=== PATIENT | male | born 1955 | race African-American/Black ===

== ENCOUNTER 2017-02-04 11:40 | Emergency (ER) | payer MEDICAID ==
[~2017-02-04] VITALS: Ht 182.9 cm; Wt 80.0 kg
[2017-02-04 12:08] VITALS: BP 130/78
== END 2017-02-04 17:43 | disposition left against medical advice (07) ==
LOC: ER 13:13
DX: Z53.21 Procedure and treatment not carried out due to patient leaving prior to being seen by health care provider (principal); I10 Essential (primary) hypertension; F17.210 Nicotine dependence, cigarettes, uncomplicated

== ENCOUNTER 2019-05-24 11:08 | Emergency (ER) | payer MEDICARE, MEDICAID ==
[~2019-05-24] VITALS: Ht 180.3 cm; Wt 75.0 kg
[2019-05-24] MEDS ORDERED: HYDROCODONE/ACETAMINOPHEN 5/325MG TABLET PO ONE (11:45)
[2019-05-24 11:51] VITALS: BP 107/66
== END 2019-05-24 13:18 | disposition home or self-care (01) ==
LOC: ER 11:08
DX: S22.42XA Multiple fractures of ribs, left side, initial encounter for closed fracture (principal); Y93.55 Activity, bike riding; Y92.89 Other specified places as the place of occurrence of the external cause; I10 Essential (primary) hypertension
CPT/HCPCS: 71101; 99283

== ENCOUNTER 2021-03-05 13:11 | Emergency (ER) | payer MEDICARE, MEDICAID ==
[~2021-03-05] VITALS: Ht 172.7 cm; Wt 75.0 kg
[2021-03-05 13:23] VITALS: BP 131/89
[2021-03-05] MEDS ORDERED: KETOROLAC 30MG/ML VIAL IM ONE (17:30)
== END 2021-03-05 18:36 | disposition left against medical advice (07) ==
LOC: ER 13:11
DX: Z53.21 Procedure and treatment not carried out due to patient leaving prior to being seen by health care provider (principal); M54.59 Other low back pain; N40.1 Benign prostatic hyperplasia with lower urinary tract symptoms; R39.16 Straining to void

== ENCOUNTER 2021-03-11 09:09 | Emergency (ER) | payer MEDICARE, MEDICAID ==
[~2021-03-11] VITALS: Ht 180.3 cm; Wt 75.0 kg
[2021-03-11 10:20] LABS: CLARITY URINE TURBID (CLEAR); KETONES URINE TRACE (NEGATIVE); LEUKOCYTE ESTERASE URINE 2+ (NEGATIVE); NITRITE URINE NEGATIVE (NEGATIVE); OCCULT BLOOD URINE 3+ (NEGATIVE); PH URINE 7.5 (4.5-8.0); PROTEIN URINE 3+ (NEGATIVE); SPECIFIC GRAVITY URINE 1.014 (1.005-1.030)
[2021-03-11 10:21] LABS: COLOR URINE BLOODY (YELLOW)
[2021-03-11 11:02] LABS: BASOPHILS % 0.5 % (0.0-2.0); EOSINOPHILS % 0.4 % (0.0-5.0); HEMOGLOBIN. 14.5 g/dL (14.0-18.0); LYMPHOCYTES % 17.3 % (20.0-50.0); MEAN CORPUSCULAR VOLUME 94.6 fL (80.0-94.0); MEAN PLATELET VOLUME 10.9 fl (7.4-10.4); MONOCYTES % 12.2 % (2.0-8.0); NEUTROPHILS % 69.6 % (40.0-76.0); PLATELET 146 x1000/uL (130-400); RED BLOOD CELL COUNT 4.55 mill/uL (4.7-6.1); RED CELL DISTRIBUTION WIDTH 12.4 % (11.6-14.6)
[2021-03-11 11:10] LABS: CHLORIDE 99 mEq/L (98-107)
[2021-03-11] MEDS ORDERED: KETOROLAC 15MG/ML VIAL IV SCH (12:00)
[2021-03-11] MEDS ORDERED: CEFTRIAXONE 1 G PREMIX 50 ML IV SCH (12:00)
[2021-03-11] MEDS ORDERED: SODIUM CHLORIDE 0.9% 1,000 ML IV SCH (12:00)
[2021-03-11] MEDS ORDERED: CIPR500T5 MT (15:08)
[2021-03-11 15:35] VITALS: BP 128/68
== END 2021-03-11 15:35 | disposition home or self-care (01) ==
LOC: ER 09:09
DX: N39.0 Urinary tract infection, site not specified (principal); F11.10 Opioid abuse, uncomplicated
CPT/HCPCS: 36415; 74176; 80053; 81003; 83690; 85025; 87086; 96365; 96375; 99285; J0696; J1885

== ENCOUNTER 2021-05-02 11:11 | Emergency (ER) | payer MEDICARE, MEDICAID ==
[~2021-05-02] VITALS: Ht 180.3 cm; Wt 70.0 kg
[~2021-05-02 11:11] MED LIST: CIPR500T5 MT
[2021-05-02 11:20] VITALS: BP 101/58
== END 2021-05-02 13:26 | disposition home or self-care (01) ==
LOC: ER 11:11
DX: T83.038A Leakage of other urinary catheter, initial encounter (principal); N40.0 Benign prostatic hyperplasia without lower urinary tract symptoms; F11.10 Opioid abuse, uncomplicated; F17.210 Nicotine dependence, cigarettes, uncomplicated; Y84.6 Urinary catheterization as the cause of abnormal reaction of the patient, or of later complication, without mention of misadventure at the time of the procedure; Y92.018 Other place in single-family (private) house as the place of occurrence of the external cause
CPT/HCPCS: 99281

== ENCOUNTER 2021-06-10 13:18 | Emergency (ER) | payer MEDICARE, MEDICAID ==
[~2021-06-10] VITALS: Ht 177.8 cm; Wt 73.0 kg
[2021-06-10] MEDS ORDERED: MORPHINE SULFATE 4 MG/ML CPJ (NOT FOR IM USE) IV ONE (14:15)
[2021-06-10 14:48] LABS: BASOPHILS % 0.6 % (0.0-2.0); EOSINOPHILS % 0.4 % (0.0-5.0); HEMATOCRIT. 49.6 % (42.0-52.0); HEMOGLOBIN. 16.9 g/dL (14.0-18.0); LYMPHOCYTES % 21.7 % (20.0-50.0); MEAN CORPUSCULAR HEMOGLOBIN 30.5 pg (28.0-32.0); MEAN CORPUSCULAR VOLUME 89.5 fL (80.0-94.0); MEAN PLATELET VOLUME 11.8 fl (7.4-10.4); MONOCYTES % 11.5 % (2.0-8.0); NEUTROPHILS % 65.8 % (40.0-76.0); PLATELET 55 x1000/uL (130-400); RED BLOOD CELL COUNT 5.55 mill/uL (4.7-6.1); RED CELL DISTRIBUTION WIDTH 13.5 % (11.6-14.6)
[2021-06-10 14:56] LABS: CHLORIDE 106 mEq/L (98-107)
[2021-06-10 15:02] LABS: CLARITY URINE TURBID (CLEAR); COLOR URINE RED (YELLOW); KETONES URINE NEGATIVE (NEGATIVE); LEUKOCYTE ESTERASE URINE 3+ (NEGATIVE); NITRITE URINE POSITIVE (NEGATIVE); OCCULT BLOOD URINE 3+ (NEGATIVE); PH URINE 5.5 (4.5-8.0); PROTEIN URINE 2+ (NEGATIVE); SPECIFIC GRAVITY URINE 1.013 (1.005-1.030)
[2021-06-10 15:52] VITALS: BP 161/95
[2021-06-10] MEDS ORDERED: CEFTRIAXONE 1 G PREMIX 50 ML IV ONE (17:15)
== END 2021-06-10 17:24 | disposition left against medical advice (07) ==
LOC: ER 13:42
DX: N13.30 Unspecified hydronephrosis (principal); N20.0 Calculus of kidney; K80.20 Calculus of gallbladder without cholecystitis without obstruction
CPT/HCPCS: 36415; 74176; 80053; 81003; 83690; 85025; 87077; 87086; 87186; 96374; 99284; J2270

== ENCOUNTER 2021-08-06 09:19 | Emergency (ER) | payer MEDICARE, MEDICAID ==
[~2021-08-06] VITALS: Ht 182.9 cm; Wt 72.0 kg
[2021-08-06 09:28] VITALS: BP 98/64
[2021-08-06 11:16] LABS: CLARITY URINE TURBID (CLEAR); COLOR URINE ORANGE (YELLOW); KETONES URINE NEGATIVE (NEGATIVE); LEUKOCYTE ESTERASE URINE 3+ (NEGATIVE); NITRITE URINE NEGATIVE (NEGATIVE); OCCULT BLOOD URINE 3+ (NEGATIVE); PROTEIN URINE 2+ (NEGATIVE); SPECIFIC GRAVITY URINE 1.013 (1.005-1.030)
[2021-08-06] MEDS ORDERED: NITR-87 MT (12:14)
== END 2021-08-06 13:18 | disposition home or self-care (01) ==
LOC: ER 09:19
DX: N39.0 Urinary tract infection, site not specified (principal); Z46.6 Encounter for fitting and adjustment of urinary device
CPT/HCPCS: 74176; 81003; 87077; 87186; 99284; A4315

== ENCOUNTER 2021-09-15 11:15 | Emergency (ER) | payer MEDICARE, MEDICAID ==
[~2021-09-15] VITALS: Ht 180.3 cm; Wt 76.0 kg
[~2021-09-15 11:15] MED LIST changes: +NITR-87 MT
[2021-09-15 13:01] LABS: CLARITY URINE CLOUDY (CLEAR); COLOR URINE BLOODY (YELLOW); KETONES URINE TRACE (NEGATIVE); LEUKOCYTE ESTERASE URINE 2+ (NEGATIVE); NITRITE URINE NEGATIVE (NEGATIVE); OCCULT BLOOD URINE 3+ (NEGATIVE); PH URINE 6.5 (4.5-8.0); PROTEIN URINE 2+ (NEGATIVE); UROBILINOGEN URINE 0.2 E.U./dL (0.2-1.0)
[2021-09-15] MEDS ORDERED: CIPR500T5 MT (13:42)
[2021-09-15] MEDS ORDERED: LEVOFLOXACIN 250MG TABLET PO NR (13:57)
[2021-09-15 14:21] VITALS: BP 138/83
== END 2021-09-15 14:27 | disposition home or self-care (01) ==
LOC: ER 11:15
DX: T83.098A Other mechanical complication of other urinary catheter, initial encounter (principal); N39.0 Urinary tract infection, site not specified; N40.1 Benign prostatic hyperplasia with lower urinary tract symptoms; R33.8 Other retention of urine; Y84.6 Urinary catheterization as the cause of abnormal reaction of the patient, or of later complication, without mention of misadventure at the time of the procedure; Y92.018 Other place in single-family (private) house as the place of occurrence of the external cause; F17.210 Nicotine dependence, cigarettes, uncomplicated
CPT/HCPCS: 51702; 81003; 99284

== ENCOUNTER 2021-10-30 09:18 | Inpatient (IN) | payer MEDICARE, OTHER ==
[~2021-10-30] VITALS: Ht 167.6 cm; Wt 77.6 kg
[2021-10-30] MEDS ORDERED: ACETAMINOPHEN 325MG TABLET PO STA (10:03)
[2021-10-30 10:37] LABS: BASOPHILS % 0.4 % (0.0-2.0); EOSINOPHILS % 1.1 % (0.0-5.0); HEMATOCRIT. 40.2 % (42.0-52.0); HEMOGLOBIN. 13.5 g/dL (14.0-18.0); LYMPHOCYTES % 15.7 % (20.0-50.0); MEAN CORPUSCULAR VOLUME 92.4 fL (80.0-94.0); MEAN PLATELET VOLUME 10.7 fl (7.4-10.4); MONOCYTES % 8.4 % (2.0-8.0); NEUTROPHILS % 74.4 % (40.0-76.0); PLATELET 68 x1000/uL (130-400); RED BLOOD CELL COUNT 4.35 mill/uL (4.7-6.1)
[2021-10-30 10:51] LABS: CHLORIDE 103 mEq/L (98-107)
[2021-10-30 11:04] LABS: INR 1.1; PROTHROMBIN TIME 11.4 sec (9.6-11.0)
[2021-10-30] MEDS ORDERED: HYDROCODONE/ACETAMINOPHEN 5/325MG TABLET PO ONE (12:00)
[2021-10-30] MEDS ORDERED: CEFTRIAXONE 1 G PREMIX 50 ML IV SCH (19:15)
[2021-10-30 20:00] VITALS: BP 154/79
[2021-10-30] MEDS ORDERED: HYDROCODONE/ACETAMINOPHEN 10/325MG TABLET PO PRN (20:30)
[2021-10-30] MEDS ORDERED: NALOXONE HCL 0.4MG/ML VIAL IV PRN (20:45)
[2021-10-30] MEDS ORDERED: POTASSIUM CHLORIDE 20MEQ TABLET SR PO NR (21:00)
[2021-10-30] MEDS: CEFTRIAXONE 1,000 MG in DEXTROSE 5% WATER 50 ML IV SCH (21:58)
[2021-10-30] MEDS: FAMOTIDINE 20MG TABLET PO SCH (21:58)
[2021-10-30 22:00] LABS: BASOPHILS % 0.6 % (0.0-2.0); EOSINOPHILS % 1.6 % (0.0-5.0); HEMATOCRIT. 42.5 % (42.0-52.0); HEMOGLOBIN. 14.1 g/dL (14.0-18.0); LYMPHOCYTES % 24.2 % (20.0-50.0); MEAN CORPUSCULAR HEMOGLOBIN 30.9 pg (28.0-32.0); MEAN CORPUSCULAR VOLUME 93.1 fL (80.0-94.0); MEAN PLATELET VOLUME 10.8 fl (7.4-10.4); MONOCYTES % 10.8 % (2.0-8.0); NEUTROPHILS % 62.8 % (40.0-76.0); PLATELET 63 x1000/uL (130-400); RED BLOOD CELL COUNT 4.56 mill/uL (4.7-6.1); RED CELL DISTRIBUTION WIDTH 12.2 % (11.6-14.6)
[2021-10-30 22:24] LABS: CHLORIDE 102 mEq/L (98-107)
[2021-10-31] VITALS (7 sets, daily range): BP systolic 164–180; BP diastolic 100–112
[2021-10-31 03:06] LABS: CLARITY URINE TURBID (CLEAR); COLOR URINE BROWN (YELLOW)
[2021-10-31 03:07] LABS: PROTEIN URINE 2+ (NEGATIVE)
[2021-10-31 03:09] LABS: KETONES URINE 1+ (NEGATIVE); NITRITE URINE NEGATIVE (NEGATIVE); OCCULT BLOOD URINE 4+ (NEGATIVE); UROBILINOGEN URINE 1 E.U./dL (0.2-1.0)
[2021-10-31 03:10] LABS: LEUKOCYTE ESTERASE URINE 2+ (NEGATIVE)
[2021-10-31] MEDS: CLONIDINE 0.1MG TABLET PO PRN ×3 (05:37→15:48)
[2021-10-31] MEDS: AMLODIPINE 10MG TABLET PO SCH (08:29)
[2021-10-31] MEDS: FAMOTIDINE 20MG TABLET PO SCH ×2 (08:32→22:05)
[2021-10-31] MEDS ORDERED: LOSARTAN POTASSIUM 50 MG TABLET PO SCH (09:45)
[2021-10-31] MEDS: HYDRALAZINE HCL 100MG TABLET PO SCH ×2 (17:27→22:04)
[2021-10-31] MEDS: CEFTRIAXONE 1,000 MG in DEXTROSE 5% WATER 50 ML IV SCH (22:04)
[2021-10-31] MEDS: LOSARTAN POTASSIUM 50 MG TABLET PO SCH (22:05)
[2021-11-01] VITALS: BP 155/96
[2021-11-01 04:00] VITALS: BP 158/97
[2021-11-01] MEDS: HYDRALAZINE HCL 100MG TABLET PO SCH (06:21)
[2021-11-01 08:27] VITALS: BP 168/98
[2021-11-01] MEDS: FAMOTIDINE 20MG TABLET PO SCH (08:31)
[2021-11-01] MEDS: LOSARTAN POTASSIUM 50 MG TABLET PO SCH (08:31)
[2021-11-01] MEDS: AMLODIPINE 10MG TABLET PO SCH (08:31)
[2021-11-01 10:15] VITALS: BP 168/98
[2021-11-01] MEDS ORDERED: CEPH500C2 MT (10:28)
[2021-11-01] MEDS ORDERED: METO-539 MT (10:28)
[2021-11-01] MEDS ORDERED: LOSA50TA3 PO (10:28)
[2021-11-01] MEDS ORDERED: HYDR100T26 PO (10:28)
[2021-11-01] MEDS ORDERED: METOPROLOL TARTRATE 50MG TABLET PO SCH ×2 (10:30→21:00)
== END 2021-11-01 11:20 | disposition home or self-care (01) | DRG 465 ==
LOC: ER 09:18 → EDBEDREQ 13:52 → EDBEDREQTM 13:53 → 6EST 18:29 → 7EST 10-31 11:33
PROVIDERS: ADMIT Internal Medicine; ATTEND Internal Medicine
DX: N20.0 Calculus of kidney (principal); U07.1 COVID-19; E44.1 Mild protein-calorie malnutrition; N21.0 Calculus in bladder; N13.8 Other obstructive and reflux uropathy; N40.1 Benign prostatic hyperplasia with lower urinary tract symptoms; N39.0 Urinary tract infection, site not specified; E87.1 Hypo-osmolality and hyponatremia; E87.6 Hypokalemia; F17.210 Nicotine dependence, cigarettes, uncomplicated; I10 Essential (primary) hypertension; M54.50 Low back pain, unspecified; R26.2 Difficulty in walking, not elsewhere classified; Z79.899 Other long term (current) drug therapy; Z68.27 Body mass index [BMI] 27.0-27.9, adult
CPT/HCPCS: 36415; 74176; 80048; 80053; 81003; 85025; 87077; 87186; 87426; 93005; 99285; J0696; J7060; J7120

== ENCOUNTER → 2022-03-21 | Day surgery (SDC) | payer MEDICARE, MEDICAID ==
[~2022-03-21] VITALS: Ht 177.8 cm; Wt 66.7 kg
[~2022-03-21] MED LIST changes: +BICT1TAB PO; +CEPH500C2 MT; -CIPR500T5 MT; +FENTANYL CITRATE/PF 50MCG/ML 2ML VIAL ONE; +HYDR100T26 PO; +LACTATED RINGERS 1,000 ML IV SCH; +LIDOCAINE HCL 1% 10 MG/ML 10ML VIAL ONE; +LOSA50TA3 PO; +METO-539 MT; -NITR-87 MT; +PROPOFOL 200MG/20ML VIAL IV ONE; +TAMS-11 PO
[2022-03-21 06:45] LABS: BASOPHILS % 0.5 % (0.0-2.0); EOSINOPHILS % 1.2 % (0.0-5.0); HEMATOCRIT. 46.7 % (42.0-52.0); HEMOGLOBIN. 15.5 g/dL (14.0-18.0); LYMPHOCYTES % 17.5 % (20.0-50.0); MEAN CORPUSCULAR HEMOGLOBIN 30.6 pg (28.0-32.0); MEAN CORPUSCULAR VOLUME 91.9 fL (80.0-94.0); MEAN PLATELET VOLUME 12.1 fl (7.4-10.4); MONOCYTES % 11.5 % (2.0-8.0); NEUTROPHILS % 69.3 % (40.0-76.0); RED BLOOD CELL COUNT 5.08 mill/uL (4.7-6.1); RED CELL DISTRIBUTION WIDTH 12.4 % (11.6-14.6)
[2022-03-21 08:11] LABS: INR 1.1; PARTIAL THROMBOPLASTIN TIME 31.1 sec (23.4-31.0); PROTHROMBIN TIME 11.3 sec (9.6-11.0)
[2022-03-21 08:35] LABS: CHLORIDE 106 mEq/L (98-107)
[2022-03-21 11:40] LABS: PLATELET 43 x1000/uL (130-400)
== END | disposition home or self-care (01) ==
LOC: OR 06:35
PROVIDERS: ATTEND Urology
DX: R33.9 Retention of urine, unspecified (principal); Z53.8 Procedure and treatment not carried out for other reasons; J44.9 Chronic obstructive pulmonary disease, unspecified; F17.210 Nicotine dependence, cigarettes, uncomplicated; Z79.899 Other long term (current) drug therapy; Z98.890 Other specified postprocedural states; Z82.49 Family history of ischemic heart disease and other diseases of the circulatory system; Z79.01 Long term (current) use of anticoagulants
CPT/HCPCS: 36415; 71045; 80048; 85025; 85610; 85730; 87426; 93005; J2704; J3010; J3490

== ENCOUNTER 2022-04-01 09:43 | Emergency (ER) | payer MEDICARE, MEDICAID ==
[~2022-04-01] VITALS: Ht 165.1 cm; Wt 70.0 kg
[~2022-04-01 09:43] MED LIST changes: -FENTANYL CITRATE/PF 50MCG/ML 2ML VIAL ONE; -LACTATED RINGERS 1,000 ML IV SCH; -LIDOCAINE HCL 1% 10 MG/ML 10ML VIAL ONE; -PROPOFOL 200MG/20ML VIAL IV ONE
[2022-04-01 09:49] VITALS: BP 130/79
== END 2022-04-01 18:58 | disposition left against medical advice (07) ==
LOC: ER 09:43
DX: Z53.21 Procedure and treatment not carried out due to patient leaving prior to being seen by health care provider (principal)

== ENCOUNTER 2022-05-30 23:28 | Emergency (ER) | payer MEDICARE, MEDICAID ==
[~2022-05-30] VITALS: Ht 180.3 cm; Wt 66.0 kg
[2022-05-30 23:46] VITALS: BP 129/67
[2022-05-31 02:19] LABS: CLARITY URINE TURBID (CLEAR); COLOR URINE YELLOW (YELLOW); KETONES URINE TRACE (NEGATIVE); LEUKOCYTE ESTERASE URINE 3+ (NEGATIVE); NITRITE URINE POSITIVE (NEGATIVE); OCCULT BLOOD URINE 2+ (NEGATIVE); PH URINE 5.5 (4.5-8.0); PROTEIN URINE TRACE (NEGATIVE); SPECIFIC GRAVITY URINE 1.014 (1.005-1.030)
== END 2022-05-31 00:45 | disposition left against medical advice (07) ==
LOC: ER 23:28
DX: Z53.21 Procedure and treatment not carried out due to patient leaving prior to being seen by health care provider (principal)
CPT/HCPCS: 81003

== ENCOUNTER 2022-06-05 15:29 | Inpatient (IN) | payer MEDICARE, MEDICAID ==
[~2022-06-05] VITALS: Ht 175.3 cm; Wt 67.1 kg
[2022-06-05] MEDS ORDERED: MAGNESIUM/ALUMINUM HYDROXIDE/SIMETHICONE 30ML UDC PO PRN (18:30)
[2022-06-05] MEDS ORDERED: ONDANSETRON HCL 4MG/2ML INJ IV PRN (18:30)
[2022-06-05] MEDS ORDERED: GUAIFENESIN 200MG/10ML SUGAR FREE UDC PO PRN (18:30)
[2022-06-05] MEDS ORDERED: DIPHENHYDRAMINE 50MG/ML VIAL IV PRN (18:30)
[2022-06-05] MEDS ORDERED: IPRATROPIUM/ALBUTEROL 0.5-3(2.5)MG/3ML NEB HHN PRN (18:30)
[2022-06-05] MEDS ORDERED: ACETAMINOPHEN 325MG TABLET PO PRN ×2 (18:30)
[2022-06-05 19:21] LABS: BASOPHILS % 0.5 % (0.0-2.0); EOSINOPHILS % 2.1 % (0.0-5.0); HEMATOCRIT. 42.6 % (42.0-52.0); HEMOGLOBIN. 14.4 g/dL (14.0-18.0); LYMPHOCYTES % 13.5 % (20.0-50.0); MEAN CORPUSCULAR HEMOGLOBIN 30.6 pg (28.0-32.0); MEAN CORPUSCULAR VOLUME 90.6 fL (80.0-94.0); MEAN PLATELET VOLUME 11.4 fl (7.4-10.4); MONOCYTES % 11.7 % (2.0-8.0); NEUTROPHILS % 72.2 % (40.0-76.0); PLATELET 76 x1000/uL (130-400); RED BLOOD CELL COUNT 4.71 mill/uL (4.7-6.1); RED CELL DISTRIBUTION WIDTH 12.4 % (11.6-14.6)
[2022-06-05 19:23] LABS: CHLORIDE 103 mEq/L (98-107)
[2022-06-05 19:24] LABS: CLARITY URINE TURBID (CLEAR); COLOR URINE YELLOW (YELLOW); KETONES URINE TRACE (NEGATIVE); LEUKOCYTE ESTERASE URINE 3+ (NEGATIVE); NITRITE URINE NEGATIVE (NEGATIVE); OCCULT BLOOD URINE 1+ (NEGATIVE); PH URINE 5.5 (4.5-8.0); PROTEIN URINE TRACE (NEGATIVE); SPECIFIC GRAVITY URINE 1.014 (1.005-1.030)
[2022-06-05 19:24] LABS: INR 1.1; PROTHROMBIN TIME 11.8 sec (9.6-11.0)
[2022-06-05] MEDS: DEXT 5%/0.45% NACL 1000ML 1,000 ML IV SCH (19:45)
[2022-06-05] MEDS ORDERED: ZOLPIDEM TARTRATE 5MG TABLET PO PRN (20:00)
[2022-06-05] MEDS ORDERED: CEFTRIAXONE 1 G PREMIX 50 ML IV ONE (21:45)
[2022-06-05] MEDS: CLONIDINE 0.1MG TABLET PO PRN (23:06)
[2022-06-06] VITALS (11 sets, daily range): BP systolic 113–175; BP diastolic 67–100
[2022-06-06 06:15] LABS: HEMATOCRIT 42.9 % (42.0-52.0); HEMOGLOBIN 14.4 g/dL (14.0-18.0); MEAN CORPUSCULAR HEMOGLOBIN 30.2 pg (28.0-32.0); MEAN CORPUSCULAR VOLUME 89.7 fL (80.0-94.0); RED BLOOD CELL COUNT 4.78 mill/uL (4.7-6.1); RED CELL DISTRIBUTION WIDTH 12.8 % (11.6-14.6)
[2022-06-06 07:25] LABS: PLATELET 76 x1000/uL (130-400)
[2022-06-06] MEDS: TAMSULOSIN HCL 0.4MG SR CAPSULE PO SCH (09:00)
[2022-06-06] MEDS ORDERED: DOCUSATE SODIUM 100MG CAPSULE PO SCH (09:00)
[2022-06-06] MEDS: LISINOPRIL 10MG TABLET PO SCH (09:00)
[2022-06-06] MEDS: CLONIDINE 0.1MG TABLET PO PRN (09:15)
[2022-06-06] MEDS ORDERED: DEXAMETHASONE 4MG/ML 1ML VIAL ONE (12:40)
[2022-06-06] MEDS ORDERED: ONDANSETRON HCL 4MG/2ML INJ ONE (12:40)
[2022-06-06] MEDS ORDERED: MIDAZOLAM HCL 2 MG/2 ML VIAL ONE ×2 (12:41→13:16)
[2022-06-06] MEDS ORDERED: FENTANYL CITRATE/PF 50MCG/ML 2ML VIAL ONE ×2 (12:41→13:11)
[2022-06-06] MEDS ORDERED: LIDOCAINE HCL 1% 10 MG/ML 10ML VIAL ONE (12:41)
[2022-06-06] MEDS ORDERED: PROPOFOL 200MG/20ML VIAL IV ONE ×2 (12:41→13:11)
[2022-06-06] MEDS ORDERED: HYDROMORPHONE HCL/PF 2MG/ML CPJ ONE (13:42)
[2022-06-06] MEDS ORDERED: HYDROMORPHONE HCL/PF 2MG/ML CPJ IV PRN (14:15)
[2022-06-06] MEDS ORDERED: LABETALOL 5MG/ML SYR 20 MG/4 ML SYRINGE IV PRN (14:15)
[2022-06-06] MEDS ORDERED: MAGNESIUM HYDROXIDE 400MG/5ML 30ML UDC PO PRN (14:15)
[2022-06-06] MEDS ORDERED: ONDANSETRON HCL 4MG/2ML INJ IV PRN (14:15)
[2022-06-06] MEDS ORDERED: GENTAMICIN 80MG PREMIX 100 ML IV SCH (14:15)
[2022-06-06] MEDS ORDERED: MEPERIDINE HCL/PF 25MG/ML CPJ IV PRN (14:15)
[2022-06-06] MEDS ORDERED: HYDRALAZINE 20MG/ML VIAL IV PRN (15:30)
[2022-06-06] MEDS ORDERED: HYDROCODONE/ACETAMINOPHEN 10/325MG TABLET PO PRN (22:00)
[2022-06-06] MEDS: HYDROCODONE/ACETAMINOPHEN 10/325MG TABLET PO PRN (22:31)
[2022-06-06] MEDS: GENTAMICIN 80MG PREMIX 100 ML IV SCH (22:35)
[2022-06-06] MEDS: DEXT 5%/0.45% NACL 1000ML 1,000 ML IV SCH (22:39)
[2022-06-07] VITALS: BP 105/67
[2022-06-07 04:00] VITALS: BP 111/70
[2022-06-07] MEDS: GENTAMICIN 80MG PREMIX 100 ML IV SCH ×2 (04:00→17:14)
[2022-06-07 06:41] LABS: BASOPHILS % 0.2 % (0.0-2.0); HEMATOCRIT. 36.5 % (42.0-52.0); HEMOGLOBIN. 12.3 g/dL (14.0-18.0); LYMPHOCYTES % 8.5 % (20.0-50.0); MEAN CORPUSCULAR HEMOGLOBIN 29.8 pg (28.0-32.0); MEAN CORPUSCULAR VOLUME 88.4 fL (80.0-94.0); MEAN PLATELET VOLUME 12.5 fl (7.4-10.4); MONOCYTES % 8.4 % (2.0-8.0); NEUTROPHILS % 82.9 % (40.0-76.0); PLATELET 95 x1000/uL (130-400); RED BLOOD CELL COUNT 4.13 mill/uL (4.7-6.1); RED CELL DISTRIBUTION WIDTH 12.3 % (11.6-14.6)
[2022-06-07 07:01] LABS: CHLORIDE 103 mEq/L (98-107)
[2022-06-07 08:00] VITALS: BP 131/77
[2022-06-07] MEDS: LISINOPRIL 10MG TABLET PO SCH (09:05)
[2022-06-07] MEDS: DOCUSATE SODIUM 100MG CAPSULE PO SCH (09:05)
[2022-06-07] MEDS: TAMSULOSIN HCL 0.4MG SR CAPSULE PO SCH (09:05)
[2022-06-07] MEDS: LORAZEPAM 1MG TABLET PO SCH (09:51)
[2022-06-07 12:00] VITALS: BP 134/76
[2022-06-07] MEDS: DEXT 5%/0.45% NACL 1000ML 1,000 ML IV SCH (12:03)
[2022-06-07] MEDS: LEVOFLOXACIN 500MG TABLET PO SCH (12:03)
[2022-06-07] MEDS: HYDROCODONE/ACETAMINOPHEN 10/325MG TABLET PO PRN (12:33)
[2022-06-07 16:00] VITALS: BP 116/58
[2022-06-07 20:00] VITALS: BP 114/65
[2022-06-08] VITALS: BP 169/89
[2022-06-08] MEDS: CLONIDINE 0.1MG TABLET PO PRN ×2 (01:09→10:24)
[2022-06-08 04:00] VITALS: BP 150/83
[2022-06-08] MEDS: DEXT 5%/0.45% NACL 1000ML 1,000 ML IV SCH (07:00)
[2022-06-08 08:00] VITALS: BP 181/104
[2022-06-08 09:09] LABS: IMMUNOGLOBULIN A 265 mg/dL (61-437); IMMUNOGLOBULIN G 2674 mg/dL (603-1613); IMMUNOGLOBULIN M 326 mg/dL (20-172)
[2022-06-08] MEDS: LORAZEPAM 1MG TABLET PO SCH ×3 (09:51→13:21)
[2022-06-08] MEDS: TAMSULOSIN HCL 0.4MG SR CAPSULE PO SCH (10:00)
[2022-06-08] MEDS: LEVOFLOXACIN 500MG TABLET PO SCH (10:01)
[2022-06-08] MEDS: DOCUSATE SODIUM 100MG CAPSULE PO SCH (10:01)
[2022-06-08] MEDS: LISINOPRIL 10MG TABLET PO SCH (10:01)
[2022-06-08 12:00] VITALS: BP 186/129
[2022-06-08] MEDS ORDERED: CLONIDINE 0.2MG TABLET PO NR (13:00)
[2022-06-08 14:05] VITALS: BP 142/91
== END 2022-06-08 14:15 | disposition home or self-care (01) | DRG 482 ==
LOC: ER 15:56 → 6EST 20:06 → EDBEDREQ 20:40 → EDBEDREQTM 20:40
PROVIDERS: ADMIT Internal Medicine; ATTEND Internal Medicine
PROC: 0VT08ZZ Resection of Prostate, Via Natural or Artificial Opening Endoscopic (ICD-10-PCS; principal; 2022-06-06)
PROC: 30233R1 Transfusion of Nonautologous Platelets into Peripheral Vein, Percutaneous Approach (ICD-10-PCS; 2022-06-06)
DX: N40.1 Benign prostatic hyperplasia with lower urinary tract symptoms (principal); D68.9 Coagulation defect, unspecified; D69.6 Thrombocytopenia, unspecified; E44.0 Moderate protein-calorie malnutrition; N13.8 Other obstructive and reflux uropathy; N39.0 Urinary tract infection, site not specified; G89.29 Other chronic pain; I10 Essential (primary) hypertension; J44.9 Chronic obstructive pulmonary disease, unspecified; F17.210 Nicotine dependence, cigarettes, uncomplicated; Z90.79 Acquired absence of other genital organ(s); Z68.21 Body mass index [BMI] 21.0-21.9, adult; R33.8 Other retention of urine; R39.12 Poor urinary stream; N21.0 Calculus in bladder
CPT/HCPCS: 36415; 71045; 80048; 80053; 81003; 82784; 83735; 85025; 85027; 85049; 86334; 86850; 86900; 87186; 87426; 88305; 93005; 99291; C1751; C1893; C9803; J0360; J0696; J1100; J1170; J1580; J2175; J2250; J2405; J2704; J3010; J3490; P9036